=== PATIENT | female | born 1980 | race African-American/Black ===

== ENCOUNTER 2020-07-12 02:24 | Outpatient (CLI) | payer OTHER, SELFPAY ==
[2020-07-13 14:20] LABS: SARS-CoV-2 RNA PCR Positive
== END 2020-07-12 02:25 | disposition home or self-care (01) ==
LOC: ANHCOVIDDT 02:25
PROVIDERS: Visit Provider Obstetrics & Gynecology Gynecology
DX: U07.1 COVID-19 (principal)
CPT/HCPCS: 87635; C9803; U0003

== ENCOUNTER 2020-08-02 03:01 | Outpatient (CLI) | payer OTHER, SELFPAY ==
[2020-08-02 18:02] LABS: SARS-CoV-2 RNA PCR Negative
== END 2020-08-02 03:02 | disposition home or self-care (01) ==
LOC: ANHCOVIDDT 03:02
PROVIDERS: Visit Provider Obstetrics & Gynecology Gynecology
DX: Z01.812 Encounter for preprocedural laboratory examination (principal); Z20.828 Contact with and (suspected) exposure to other viral communicable diseases
CPT/HCPCS: 87635; C9803; U0003

== ENCOUNTER 2020-08-05 01:38 | Day surgery (SDC) | payer OTHER, SELFPAY ==
[2020-07-01 13:52] VITALS: BMI 44.1
--- NOTE | 2020-07-14 10:16 | SUR.PREOP ---
Dr Kelley contacted and informed patient Covid test is positive states case on 07/15/20 will be cancelled at this time. This RN called and informed patient to follow up with office with new surgery date understanding stated.
--- NOTE | 2020-07-22 12:16 | PC.NURSE ---
PT STATES NO CHANGE IN HEALTH HX SINCE 07/01/20. HAD SURGERY CANCELLED R/T +COVID AND HAS BEEN RESCHEDULED 08/05/20. PT STATES NO KNOWN RE-EXPOSURE. D/W PT UPDATED INSTRUCTIONS AND NEW COVID TEST DATE. PT VERBALIZES UNDERSTANDING.
[2020-08-05] MEDS: LACTATED RINGERS 1,000 ML 30 ML IV CONT (06:50)
[2020-08-05] MEDS: ACETAMINOPHEN 500 MG TABLET 1000 MG PO (06:58)
[2020-08-05 07:00] VITALS: BP 140/79; PULSE 92; RESP 18; TEMP 36.3; O2SAT 100
--- NOTE | 2020-08-05 07:03 | WPDANESEPPF ---
Anes - Initial Pre Proc Eval Procedure: Operation Date: 08/05/20 07:30 Proposed Procedures p Loop Electrical Excision Procedure With Top Hat - Bhumika Kelley MD Date/Time: 08/05/20 07:03 Surgeon: Bhumika Kelley MD Pre Op Diagnosis: IRVIN III Patient Data Age: 40 Gender: F Height: 5 ft 4 in Weight: 116.5 kg Allergies Allergy/AdvReac Type Severity Reaction Status Date / Time No Known Allergies Allergy Mild Verified 07/01/20 14:03 Home Medications Medication Instructions Recorded Confirmed Type cholecalciferol (vitamin D3) 125 mcg PO DAILY 07/01/20 07/22/20 History [Vitamin D3] Patient hx anesthesia problems: none Family hx anesthesia problems: none PMFSH Past Medical History Medical History JORGE (obstructive sleep apnea) Social History Social History Smoking status: Never smoker Substance use: never Spiritual care concerns: No Anes - Eval Final PreProcedure Day of Procedure 08/05/20 07:03 Patient weight: morbidly obese Heart: regular rate and rhythm Lungs: clear to auscultation Airway: Mallampati scale class II Neurological: alert and oriented Last oral intake: >/= 8 hours ASA classification: III Emergent: no Anesthetic plan: proceed Anesthesia type and monitoring: general GIVS and standard monitoring Informed Consent: The patient's anesthetic plan and its attendant risks and benefits were discussed with the patient/family/POA. Questions were solicited and answers provided to the satisfaction of the patient/family/POA.
--- NOTE | 2020-08-05 07:18 | P.HP_ITS ---
History of Present Illness History of Present Illness Consent: Risks, benefits, and alternatives have been discussed and questions answered. Patient agrees to proceed with procedure. 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 Reviewed and recommend to proceed with LEEP with top hat. Risks of infection, bleeding, persistent and recurrent disease reviewed. Agrees to proceed. Due to difficult exam, will do in OR under sedation. [facility] Past Medical History Medical History (Updated 08/05/20 @ 07:21 by Bhumika Kelley MD) (normal spontaneous vaginal delivery) x 4u JORGE (obstructive sleep apnea) Urethral diverticulum repaired 2013 Social History Social History Smoking status: Never smoker Substance use: never Spiritual care concerns: No Meds Home Medications and Allergies Home Medications Medication Instructions Recorded Confirmed Type cholecalciferol (vitamin D3) 125 mcg PO DAILY 07/01/20 07/22/20 History [Vitamin D3] Allergies Allergy/AdvReac Type Severity Reaction Status Date / Time No Known Allergies Allergy Mild Verified 07/01/20 14:03 Exam Const: General: healthy appearing and alert Orientation/consciousness: patient oriented x3 GI: GI Palp: Yes Soft to palpation, No Tenderness to palpation present (GI) and No Palpable mass present : External Female Exam: normal external appearance Speculum Exam - Vagina: normal appearance of the vagina and normal vaginal discharge Speculum Exam - Cervix: normal appearance of the cervix Bimanual exam- vagina & uterus: uterine size normal and consistency normal Bimanual Exam- Adnexa, oth er: normal adnexae and No adnexal tenderness Neuro: General: patient oriented x3 Assessment and Plan Assessment and plan (1) Severe cervical dysplasia: Code(s): D06.9 - Carcinoma in situ of cervix, unspecified Status: Acute Assessment and Plan: The external cervical biopsies normal but ECC with severe dysplasia. Plan to proceed with LEEP with top hat.
--- NOTE | 2020-08-05 07:22 | WPDHPUPDATE1 ---
History and Physical Update Update Date/Time: 08/05/20 07:22 History and Physical has been reviewed, including an updated exam of the patient. There are NO changes in the patient's condition. Risks, benefits, and alternatives have been discussed and questions answered. Patient agrees to proceed with procedure.
[2020-08-05] MEDS: LIDO 1%/EPINEPHRINE 1:100,000 20 ML VIAL 10 ML INFILTRATE (07:28)
--- NOTE | 2020-08-05 08:03 | SUR.OPER ---
EBL: 10cc
[2020-08-05 08:09] VITALS: BP 103/61; PULSE 88; RESP 20; TEMP 37.7; O2SAT 100
--- NOTE | 2020-08-05 08:18 | PM.PROC ---
Procedure Note - Detailed Date of procedure: 08/05/20 Pre-op diagnosis: IRVIN III Post-op diagnosis: same Procedure performed: LEEP with top hat Description of procedure: The patient is taken to the operating room placed in the dorsal lithotomy position. She is draped with sterile towels. The bivalve speculum was placed in the vagina is noted to be too short a long Graves speculum was requested and not found. An extra long Falcon was the only speculum that reached the patient's cervix. The lateral cm are retracted using a sidewall retractor all of these are coated. The vinegar is placed on the cervix and the cervix inspected with the microscope. No abnormalities are noted. The cervix is noted to be very bulbous and the os is approximately 2cm in length. The cervix is injected with 1% lidocaine with epinephrine in each quadrant. The [id number] loop is used to perform an anterior LEEP. The technical support internship remove the specimen before marking it and cut it and formalin. The posterior LEEP was performed using the same loop and 2 pieces immediately fell into the posterior fornix due to the bulbous nature of the posterior cervix. Therefore orientation was lost on the posterior LEEP specimen. A 1x1cm loop is used to perform a top-hat. Anteriorly and posteriorly specimens of the internal os are taken as well due to the size of the os. Monsel's solution is applied for hemostasis. All instruments are removed. Anesthesia: MAC and local Surgeon: Bhumika Kelley MD Estimated blood loss (mL): 5 Drains: No Packing: No Pathology: yes (anterior lip; posterior lip (2 pieces); top hat 2 pieces) Complications: No immediate complications Condition: stable Disposition: PACU Findings: bulbous cervix without AWE
[2020-08-05 08:30] VITALS: BP 104/66; PULSE 77; RESP 20
[2020-08-05 09:00] VITALS: BP 104/69; PULSE 67; RESP 20
== END 2020-08-05 09:20 | disposition home or self-care (01) ==
PROVIDERS: Visit Provider Obstetrics & Gynecology Gynecology
PROC: 0UBC7ZZ Excision of Cervix, Via Natural or Artificial Opening (ICD-10-PCS; CPT 57522; principal; 2020-08-05 07:30)
DX: D06.9 Carcinoma in situ of cervix, unspecified (principal); G47.33 Obstructive sleep apnea (adult) (pediatric); E66.01 Morbid (severe) obesity due to excess calories; Z68.41 Body mass index [BMI] 40.0-44.9, adult
CPT/HCPCS: 57522; 88305; A9270; J2250; J2405; J2704; J3010; J7120

== ENCOUNTER 2023-05-24 00:30 | Day surgery (SDC) | payer OTHER, SELFPAY ==
[2023-05-18 08:46] VITALS: BMI 41.6
--- NOTE | 2023-05-18 08:53 | PC.NURSE ---
Report to the Outpatient Waiting Room, entrance under the green pavilion located off [facility], at time _0745_ on date _05/24/23. Planned Procedure Time: _0945_. Time changes happen often and if your time is changed the preop area will call you the afternoon before. - You and your visitor will be asked to self-screen and do not enter if you have any COVID symptoms. - A mask is optional within the hospital at this time. Patients may have clear liquids (water, carbonated beverages, clear teas, apple juice) until 3 hours prior to surgery with a maximum of 20 ounces. - No food from midnight until time of surgery - Infants may have breast milk until 4 hours before surgery, formula 6 hours prior to surgery. - Children will be allowed to drink immediately following surgery. If applicable, please bring a bottle or sippy cup to assist with drinking. Juice, water, soda, and popsicles are readily available. For infants on formula, please bring formula the day of surgery. Pacifiers are allowed. Take the following medications with a SIP of water the morning of surgery: NONE DO NOT STOP ANY OF YOUR OTHER PRESCRIPTION MEDICATIONS PRIOR TO SURGERY ?EXCEPT THE FOLLOWING Medications to discontinue per physician VITAMIN/ SUPPLIMENTS Date to take last dose 05/21/23__ Please no make-up, nail japanese, hairspray, perfume, deodorant, or body powder the day of surgery. No jewelry (including any body piercings) or valuables the day of surgery, leave them at home. Please take a shower or bath the night before, or the morning of, surgery with an antibacterial soap. Wear comfortable, loose fitting clothing. Children are encouraged to wear pajamas. - Jewelry must be removed prior to entering the operating room. Rings and piercings that are not removed may be cut off. - The hospital will not accept responsibility for valuables. - Please leave all valuables, including medications, at home the day of surgery. If you are going home after surgery, a licensed cement truck driver must drive you home. - NO public transportation without another adult if you receive anesthesia. - We recommend that an adult stay with you for 24 hours following discharge. - We also recommend that you do not drive, make important decision, drink alcoholic beverages, or take any drugs that were not prescribed by your health care provider for at least 24 hours after your discharge time. For Pediatric surgeries, we recommend two adults accompany the child home. Follow any additional instructions given to you from your surgeon. If you or anyone in your household have experienced Covid symptoms in the past week, please notify your surgeon or the nurse liaison at the phone number below for possible testing. Telephone instructions given to __PATIENT_and asked if any additional questions and then verbalized understanding. Patient advised to call surgeon office or pre surgery nurse liaison [phone] if any additional questions.
--- NOTE | 2023-05-24 09:15 | WPDHPUPDATE1 ---
History and Physical Update Update Date/Time: 05/24/23 09:15 History and Physical has been reviewed, including an updated exam of the patient. There are NO changes in the patient's condition. Risks, benefits, and alternatives have been discussed and questions answered. Patient agrees to proceed with procedure.
--- NOTE | 2023-05-24 09:15 | PM.HPGS ---
History of Present Illness History of Present Illness Consent: Risks, benefits, and alternatives have been discussed and questions answered. Patient agrees to proceed with procedure. Chief complaint: Menorrhagia with Aneima Narrative: Serena Celeste is a 43 year old female with heavy cycles. Her cycles are monthly and the 1st 2 days are heavy with golf ball size clots. She is filling a pad every hour for the 1st day to 2 days. This is been a supervisor records change the past several months. The patient was placed on iron by her medical physician approximately 1 year ago due to anemia most recent H&H is 10.7 and 34. It was recommended to undergo D&C hysteroscopy. Risks of infection, bleeding, perforation, and possible pathology are reviewed. Patient voiced understanding and agrees to proceed. Review of Systems Review of Systems: not repeated day of surgery; patient states no changes in status PMFSH Past Medical History Medical History (Updated 05/24/23 @ 09:19 by Bhumika Kelley MD) (normal spontaneous vaginal delivery) x 4u JORGE (obstructive sleep apnea) Urethral diverticulum repaired 2013 Surgical History Surgical History (Updated 05/24/23 @ 09:18 by Bhumika Kelley MD) Status post LEEP (loop electrosurgical excision procedure) of cervix 2019 Social History Social History Smoking status: Never smoker Alcohol intake: never Substance use: never Living arrangements: with family Spiritual care concerns: No Meds Home Medications and Allergies Home Medications Medication Instructions Recorded Confirmed Type cholecalciferol (vitamin D3) 125 125 mcg PO DAILY 07/01/20 05/18/23 History mcg (5,000 unit) tablet (Vitamin D3) cholecalciferol (vitamin D3) 25 25 mcg PO DAILY 05/18/23 05/18/23 History mcg (1,000 unit) capsule (Vitamin D3) ferrous sulfate 325 mg (65 mg 325 mg PO 3XW 05/18/23 05/18/23 History iron) tablet (Iron (ferrous sulfate)) Allergies Allergy/AdvReac Type Severity Reaction Status Date / Time No Known Allergies Allergy Mild Verified 05/18/23 08:44 Exam Const: General: obese (BMI 35) Orientation/consciousness: patient oriented x3 Resp: Effort & Inspection: normal respiratory effort GI: GI Palp: Yes Soft to palpation, No Tenderness to palpation present (GI) and No Palpable mass present : External Female Exam: normal external appearance Speculum Exam - Vagina: normal appearance of the vagina and normal vaginal discharge Speculum Exam - Cervix: normal appearance of the cervix Bimanual exam- vagina & uterus: uterine size normal and consistency normal Bimanual Exam- Adnexa, other: normal adnexae and No adnexal tenderness Neuro: General: patient oriented x3 Assessment and Plan Assessment and plan (1) Menorrhagia: Code(s): N92.0 - Excessive and frequent menstruation with regular cycle Status: Acute Assessment and Plan: Plan to proceed with D&C hysteroscopy
[2023-05-24 09:30] VITALS: BP 117/68; PULSE 66; RESP 18; TEMP 36.1; O2SAT 100; BMI 41.5
[2023-05-24] MEDS: LACTATED RINGERS 1,000 ML 30 ML IV CONT (10:00)
[2023-05-24] MEDS: ACETAMINOPHEN 500 MG TABLET 1000 MG PO (10:26)
--- NOTE | 2023-05-24 10:33 | P.PNAN_ITS ---
Anes - Initial Pre Proc Eval Procedure: Operation Date: 05/24/23 11:15 Proposed Procedures p Hysteroscopy Dilation and Curettage - Bhumika Kelley MD Date/Time: 05/24/23 10:33 Surgeon: Bhumika Kelley MD Pre Op Diagnosis: Menorrhagia with Anemia Patient Data Age: 43 Gender: F Height: 1.63 m Weight: 109.9 kg Allergies Allergy/AdvReac Type Severity Reaction Status Date / Time No Known Allergies Allergy Mild Verified 05/24/23 10:23 Home Medications Medication Instructions Recorded Confirmed Type cholecalciferol (vitamin D3) 125 125 mcg PO DAILY 07/01/20 05/24/23 History mcg (5,000 unit) tablet (Vitamin D3) cholecalciferol (vitamin D3) 25 25 mcg PO DAILY 05/18/23 05/24/23 History mcg (1,000 unit) capsule (Vitamin D3) ferrous sulfate 325 mg (65 mg 325 mg PO 3XW 05/18/23 05/24/23 History iron) tablet (Iron (ferrous sulfate)) Patient hx anesthesia problems: none Family hx anesthesia problems: none Results Review: All pre-operative results and documents have been reviewed as part of the pre- operative evaluation. PMFSH Past Medical History Medical History (normal spontaneous vaginal delivery) x 4u JORGE (obstructive sleep apnea) Urethral diverticulum repaired 2013 Surgical History Surgical History Status post LEEP (loop electrosurgical excision procedure) of cervix 2019 Social History Social History Smoking status: Never smoker Alcohol intake: never Substance use: never Living arrangements: with family Spiritual care concerns: No Anes - Eval Final PreProcedure Day of Procedure 05/24/23 10:33 Patient weight: morbidly obese Heart: regular rate and rhythm Lungs: clear to auscultation Airway: Mallampati scale class III Neurological: alert and oriented Last oral intake: >/= 8 hours ASA classification: III Emergent: no Anesthetic plan: proceed Anesthesia type and monitoring: general GIVS and standard monitoring Results Review: All pre-operative results and documents have been reviewed as part of the pre- operative evaluation. Informed Consent: The patient's anesthetic plan and its attendant risks and benefits were discussed with the patient/family/POA. Questions were solicited and answers provided to the satisfaction of the patient/family/POA.
[2023-05-24] MEDS: KETOROLAC 30 MG/ML VIAL (*BKC) IV PUSH (11:20)
--- NOTE | 2023-05-24 11:25 | W.PM.PROC2 ---
Procedure Note - Detailed Date of Procedure 05/24/23 Pre-op Diagnosis Menorrhagia with Anemia Post-op Diagnosis Same Procedure Performed D&C hysteroscopy Surgeon Bhumika Kelley MD Anesthesia MAC Findings Uterus sounds to 8cm and appears grossly atrophic Description of Procedure The patient is taken to the operating room and placed under anesthesia in the dorsal lithotomy position. She was prepped and draped in usual sterile fashion. [place] speculum was placed in the vagina and the cervix grasped on the anterior lip with a tenaculum. The uterus is sounded to 8cm. The diagnostic hysteroscope was placed and with no abnormalities noted it is removed. The small sharp curette is used to curette the endometrium until a good uterine cry was noted in all areas. Minimal material was obtained consistent with the visual appearance. All instruments are removed. Sponge, needle, and instrument counts are correct per the OR staff. Patient is awakened from anesthesia and taken to recovery in stable condition. Estimated Blood Loss 5 Drains No Packing No Pathology Yes (Endometrial curettings) Complications No immediate complications Condition Stable Disposition PACU
[2023-05-24 11:28] VITALS: BP 92/60; PULSE 80; RESP 18; O2SAT 100
[2023-05-24 11:55] VITALS: BP 94/54; PULSE 78; RESP 18; O2SAT 98
[2023-05-24 12:25] VITALS: BP 106/51; PULSE 65; RESP 18; O2SAT 98
== END 2023-05-24 12:45 | disposition home or self-care (01) ==
PROVIDERS: PCP Physician Assistant; Visit Provider Obstetrics & Gynecology Gynecology
PROC: 0U5B8ZZ Destruction of Endometrium, Via Natural or Artificial Opening Endoscopic (ICD-10-PCS; CPT 58563; principal; 2023-05-24 11:15)
DX: N92.0 Excessive and frequent menstruation with regular cycle (principal); D64.9 Anemia, unspecified; G47.33 Obstructive sleep apnea (adult) (pediatric); E66.01 Morbid (severe) obesity due to excess calories; Z68.41 Body mass index [BMI] 40.0-44.9, adult
CPT/HCPCS: 58558; 88305; A9270; J1100; J1885; J2250; J2405; J2704; J3010; J7120

== ENCOUNTER 2025-04-13 12:45 | Outpatient (CLI) | payer OTHER, SELFPAY ==
--- NOTE | ~2025-04-13 | US_ITS ---
Pelvic ultrasound. Clinical History: Vaginal mass, inguinal lymph node Technique: Realtime transabdominal and transvaginal scanning of the pelvis was performed. Color flow Doppler and Doppler spectral analysis were performed. Findings: The uterus is anteverted, and measures 9.5 x 6.1 x 6.5 cm. The endometrial stripe has a th ickness of 8 mm. 1.7 cm intramural fibroid present posteriorly. Additional 1.7 cm subserosal fibroid present posteriorly. The right ovary measures 2.2 x 2.3 x 2.2 cm. No significant right ovarian or adnexal mass is seen. The left ovary measures 2.2 x 1.5 x 1.5 cm. No significant left ovarian or adnexal mass is seen. There is no evidence of free fluid in the cul de sac. Morphologically normal lymph nodes are present in the bilateral inguinal regions, with reniform corti alicia and fatty jose. Impression: Small uterine fibroids, as above. Reviewed, dictated and finalized at location . Impression: Small uterine fibroids, as above.
== END 2025-04-13 12:46 | disposition home or self-care (01) ==
LOC: GOSHIMG 12:47
PROVIDERS: PCP Physician Assistant; Visit Provider Obstetrics & Gynecology Gynecology
DX: R22.2 Localized swelling, mass and lump, trunk (principal); R59.0 Localized enlarged lymph nodes
CPT/HCPCS: 76830; 76856